=== PATIENT | female | born 1975 | race Caucasian/White ===

== ENCOUNTER 2024-04-09 05:55 | Day surgery (SDC) | payer BC ==
[2024-04-07 16:09] VITALS: BMI 24.7
[2024-04-07 16:25] LABS: Hematocrit 37.6 % (34.9-44.5); Hemoglobin 12.2 g/dL (12.0-15.5); Mean Corpuscular HGB CONC 32.4 g/dL (32.0-36.0); Mean Corpuscular Hemoglobin 26.3 pg (27.0-33.0); Mean Corpuscular Volume 81.2 fL (81.6-98.3); Platelet Count 187 10x3/uL (150-450); RBC Distribution Width 14.6 % (11.5-14.5); Red Blood Cell (RBC) Count 4.63 10x6/uL (3.90-5.03); White Blood Cell (WBC) Count 3.9 10x3/uL (3.5-10.5)
[2024-04-07 16:43] LABS: BHCG - Serum Negative (NEGATIVE); Pregs Control Background? CLEAR/WHITE (CLR/WHITE); Pregs Control Bar Appear? YES (CONTROL BAR)
[2024-04-09] MEDS ORDERED: Gabapentin 300 MG CAP ONE (06:49)
[2024-04-09] MEDS ORDERED: CeleCOXIB 100 MG CAP ONE (06:49)
[2024-04-09] MEDS ORDERED: Famotidine/PF 20 mg/2ml Vial ONE (06:49)
[2024-04-09] MEDS ORDERED: CEFAZOLIN 2 GM VIAL ONE (06:50)
[2024-04-09] MEDS ORDERED: Bupivacaine HCl 0.5%/Epinephrine 1:200,000/PF 30 ml Vial ONE (06:50)
[2024-04-09] MEDS ORDERED: SUGAMMADEX SODIUM 200 MG/2 ML VIAL ONE (06:52)
[2024-04-09] MEDS ORDERED: Ondansetron PF 4 MG/2 ML Vial ONE (06:52)
[2024-04-09] MEDS ORDERED: Lidocaine 2% PF 5 ML VIAL ONE (06:52)
[2024-04-09] MEDS ORDERED: fentaNYL 50 mcg/mL 1 mL Vial ONE ×2 (06:52→09:55)
[2024-04-09] MEDS ORDERED: ePHEDrine Sulfate 50 MG/10 ML VIAL ONE (06:52)
[2024-04-09] MEDS ORDERED: PROPOFOL 20 ML ONE ×2 (06:52→06:53)
[2024-04-09] MEDS ORDERED: Dexamethasone 20 MG/5 ML VIAL ONE (06:52)
[2024-04-09] MEDS ORDERED: Rocuronium Bromide 10 MG/ML (10ML VIAL) ONE (06:52)
[2024-04-09] MEDS ORDERED: Sevoflurane 250 ML INH ANEST BOTTLE ONE (06:58)
[2024-04-09] MEDS ORDERED: Propofol 1,000 MG/100 ML VIAL IV ONE (07:05)
[2024-04-09] MEDS ORDERED: Scopolamine 1 mg/72 hour Patch ONE (07:19)
[2024-04-09] MEDS ORDERED: Midazolam HCl 2 mg/2 ml Vial ONE (07:20)
[2024-04-09] MEDS ORDERED: Meperidine HCl/PF 25 MG (1 mL) VIAL ONE (09:09)
[2024-04-09] MEDS ORDERED: Promethazine HCl 25 MG/ML VIAL ONE (09:12)
[2024-04-09] MEDS ORDERED: diphenhydrAMINE 50 MG/ML VIAL ONE (09:55)
== END 2024-04-09 11:10 | disposition home or self-care (01) ==
LOC: CSHSDC 05:55
PROVIDERS: ATTEND Obstetrics & Gynecology
PROC: 0UT24ZZ Resection of Bilateral Ovaries, Percutaneous Endoscopic Approach (ICD-10-PCS; principal; 2024-04-09)
PROC: 0UT94ZZ Resection of Uterus, Percutaneous Endoscopic Approach (ICD-10-PCS; principal; 2024-04-09)
PROC: 0UT74ZZ Resection of Bilateral Fallopian Tubes, Percutaneous Endoscopic Approach (ICD-10-PCS; principal; 2024-04-09)
DX: N72 Inflammatory disease of cervix uteri (principal); N85.8 Other specified noninflammatory disorders of uterus; N83.8 Other noninflammatory disorders of ovary, fallopian tube and broad ligament; Z17.0 Estrogen receptor positive status [ER+]; Z85.3 Personal history of malignant neoplasm of breast; Z90.13 Acquired absence of bilateral breasts and nipples; Z79.899 Other long term (current) drug therapy
CPT/HCPCS: 84703; 85027; 86850; 86900; 86901; 88307; J1100; J1200; J2175; J2250; J2405; J2550; J2704; J3010; J3490; S2900

== ENCOUNTER 2025-03-18 07:39 | Outpatient (CLI) | payer BC | END 2025-03-18 07:40 | disposition home or self-care (01) | LOC: CSHULT 07:39 | PROVIDERS: ATTEND Internal Medicine Hematology & Oncology | DX: C50.811 Malignant neoplasm of overlapping sites of right female breast (principal); D70.8 Other neutropenia; T38.6X5A Adverse effect of antigonadotrophins, antiestrogens, antiandrogens, not elsewhere classified, initial encounter; M81.8 Other osteoporosis without current pathological fracture; Z79.810 Long term (current) use of selective estrogen receptor modulators (SERMs); R22.2 Localized swelling, mass and lump, trunk ==